=== PATIENT | female | born 1945 | race Caucasian/White ===

== ENCOUNTER 2017-05-17 09:00 | Outpatient (RCR) | payer MEDICARE ==
[2015-08-02 14:31] VITALS: BP 120/59
[~2017-05-17 09:00] MED LIST: ALEVE220 MG PO; ALORA0.025 MG/2 TD; AMOXICILLIN875 MG PO; BUPROPRION; CELEXA20 MG PO; FLEXERIL10 MG PO; GOOD SENSE ASPI81 M1 PO; GRALISE600 M1 PO; HYDROCODONE/APAP; IBUPROFEN 200200 MG PO; KLONOPIN0.5 MG PO; LOPERAMIDE2 M2 PO; METHOCARBAMOL750 MG PO; MINOCIN100 MG PO; PROZAC 10MG10 MG PO; SINEMET 25-1001 EACH PO; SINEMET 25-1001 TAB PO; TRIAMCINOLONE; VENLAFAXINE HYD75 MG PO; XANAX0.25 M1 PO; XANAX0.5 MG PO; ZANAFLEX4 MG PO; ZOCOR20 MG PO; [UNRECOGNIZED DRUG - OTHER] PO
== END 2017-07-28 17:41 | disposition home or self-care (01) ==
LOC: PT 09:00
DX: M48.06 Spinal stenosis, lumbar region (principal); M62.830 Muscle spasm of back
CPT/HCPCS: G8978-GP; G8979-GP

== ENCOUNTER → 2018-03-06 | Outpatient (CLI) | payer MEDICARE, OTHER ==
[2015-08-02 14:31] VITALS: BP 120/59
== END ==
LOC: RAD 09:28
DX: K76.89 Other specified diseases of liver (principal); Z72.89 Other problems related to lifestyle; Z83.79 Family history of other diseases of the digestive system

== ENCOUNTER → 2018-05-05 | Outpatient (CLI) | payer MEDICARE, OTHER ==
[2015-08-02 14:31] VITALS: BP 120/59
[2018-05-05 10:40] LABS: MEAN CELL VOLUME 97 fl (78-100); MEAN CORPUSCULAR HEMOGLOBIN 32 pg (27-31); MEAN CORPUSCULAR HGB CONC 33 g/dL (33-37); MEAN PLATELET VOLUME 9.2 fl (7.4-10.4); PLATELET COUNT 313 K/mm3 (130-400); RED BLOOD COUNT 4.44 M/mm3 (4.10-5.30); RED CELL DISTRIBUTION WIDTH 13.9 % (11.5-14.5); WHITE BLOOD COUNT 7.5 K/mm3 (4.8-10.8)
[2018-05-05 10:53] LABS: LYMPHOCYTE 24 % (20-51); MONOCYTE 6 % (3-10); NEUTROPHILS 67 % (42-75)
[2018-05-05 10:55] LABS: ALBUMIN 3.9 g/dL (3.5-5.0); BUN/CREATININE RATIO 16.3 (6.0-26.0); CALCIUM 9.3 mg/dL (8.4-10.2); POTASSIUM 4.2 mmol/L (3.6-5.0); TOTAL BILIRUBIN 0.4 mg/dL (0.2-1.3); TOTAL PROTEIN 7.4 g/dL (6.3-8.2)
== END ==
LOC: LAB 10:17
DX: R10.84 Generalized abdominal pain (principal)

== ENCOUNTER → 2019-04-17 | Outpatient (CLI) | payer MEDICARE, OTHER ==
[2015-08-02 14:31] VITALS: BP 120/59
== END ==
LOC: MAMMO 10:30
DX: Z12.31 Encounter for screening mammogram for malignant neoplasm of breast (principal)

== ENCOUNTER → 2019-04-17 | Outpatient (CLI) | payer MEDICARE, OTHER ==
[2015-08-02 14:31] VITALS: BP 120/59
== END ==
LOC: RAD 10:31 → MAMMO 11:30
DX: Z13.820 Encounter for screening for osteoporosis (principal); M85.80 Other specified disorders of bone density and structure, unspecified site

== ENCOUNTER 2019-08-23 11:15 | Outpatient (RCR) | payer MEDICARE, OTHER ==
[2015-08-02 14:31] VITALS: BP 120/59
== END 2019-08-23 12:00 | disposition home or self-care (01) ==
LOC: PT 11:15
DX: M48.061 Spinal stenosis, lumbar region without neurogenic claudication (principal)

== ENCOUNTER → 2020-02-04 | Outpatient (CLI) | payer MEDICARE, OTHER ==
[2015-08-02 14:31] VITALS: BP 120/59
== END ==
LOC: RAD 08:45
DX: D75.1 Secondary polycythemia (principal); N94.89 Other specified conditions associated with female genital organs and menstrual cycle; Z90.49 Acquired absence of other specified parts of digestive tract
CPT/HCPCS: Q9967

== ENCOUNTER 2021-02-21 08:20 | Emergency (ER) | payer MEDICARE, OTHER ==
[2021-02-21] MEDS ORDERED: CYMBALTA60 M1 PO (08:33)
[2021-02-21] MEDS ORDERED: BENTYL 20MG20 MG/TAB PO (08:33)
[2021-02-21] MEDS ORDERED: RIVASTIGMINE T4.5 MG PO (08:34)
[2021-02-21] MEDS ORDERED: VITAMIN D325 MC7 PO (08:35)
[2021-02-21] MEDS ORDERED: CALCIUM 600 MG-1 TAB PO (08:35)
[2021-02-21] MEDS ORDERED: NEURONTIN300 M1 PO (08:36)
[2021-02-21] MEDS ORDERED: NEURONTIN400 M1 PO (08:36)
[2021-02-21] MEDS ORDERED: KLONOPIN 0.5MG0.5 MG PO (08:38)
[2021-02-21] MEDS ORDERED: NORCO 325 MG-51 TA1 PO (10:29)
[2021-02-21 10:41] VITALS: BP 132/74
== END 2021-02-21 10:44 | disposition home or self-care (01) ==
LOC: ED 08:20
DX: R07.89 Other chest pain (principal); G20 Parkinson's disease; F17.210 Nicotine dependence, cigarettes, uncomplicated; Z90.710 Acquired absence of both cervix and uterus; Z88.2 Allergy status to sulfonamides; Z88.8 Allergy status to other drugs, medicaments and biological substances; W01.198A Fall on same level from slipping, tripping and stumbling with subsequent striking against other object, initial encounter; Y92.009 Unspecified place in unspecified non-institutional (private) residence as the place of occurrence of the external cause

== ENCOUNTER → 2021-03-25 | Outpatient (CLI) | payer MEDICARE, OTHER ==
[~2021-03-25] MED LIST changes: +BENTYL 20MG20 MG/TAB PO; +CALCIUM 600 MG-1 TAB PO; +CYMBALTA60 M1 PO; +KLONOPIN 0.5MG0.5 MG PO; +NEURONTIN300 M1 PO; +NEURONTIN400 M1 PO; +NORCO 325 MG-51 TA1 PO; +RIVASTIGMINE T4.5 MG PO; +VITAMIN D325 MC7 PO
== END ==
LOC: LAB 10:27
PROVIDERS: Internal Medicine Gastroenterology
DX: R10.30 Lower abdominal pain, unspecified (principal)

== ENCOUNTER → 2021-03-27 | Outpatient (CLI) | payer MEDICARE, OTHER | LOC: RAD 08:21 | DX: R10.30 Lower abdominal pain, unspecified (principal); Z90.710 Acquired absence of both cervix and uterus | CPT/HCPCS: Q9967 ==

== ENCOUNTER → 2022-03-10 | Outpatient (CLI) | payer MEDICARE, OTHER | LOC: MAMMO 12:54 | DX: Z12.31 Encounter for screening mammogram for malignant neoplasm of breast (principal) ==

== ENCOUNTER 2022-11-01 12:09 | Emergency (ER) | payer MEDICARE, OTHER ==
[~2022-11-01] VITALS: Wt 46.3 kg
[~2022-11-01 12:09] MED LIST changes: +CEFDINIR300 MG PO; +CIPRO500 M1 PO; +CLONAZEPAM0.5 M1 PO; +MACROBID 1100 MG/CAP PO; +ONDANSETRON HYDR4 MG PO; +PREDNISONE20 MG PO; +ZOFRAN ODT4 MG PO
[2022-11-01 12:36] LABS: HEMOGLOBIN 13.4 g/dL (12.5-16.0); MEAN CELL VOLUME 87 fl (78-100); MEAN CORPUSCULAR HEMOGLOBIN 29 pg (27-31); MEAN CORPUSCULAR HGB CONC 33 g/dL (33-37); MEAN PLATELET VOLUME 10.9 fl (7.4-10.4); PLATELET COUNT 360 K/mm3 (130-400); RED CELL DISTRIBUTION WIDTH 17.2 % (11.5-14.5); WHITE BLOOD COUNT 3.9 K/mm3 (4.8-10.8)
[2022-11-01 12:46] LABS: ALBUMIN 3.4 g/dL (3.4-4.8); SODIUM 148 mmol/L (136-145)
[2022-11-01 12:47] LABS: CALCIUM 10.3 mg/dL (8.3-10.5)
[2022-11-01 12:48] LABS: GLUCOSE 80 mg/dL (65-105)
[2022-11-01 12:49] LABS: TOTAL PROTEIN 6.6 g/dL (6.2-8.1)
[2022-11-01 12:50] LABS: TOTAL BILIRUBIN 0.8 mg/dL (0.2-1.2)
[2022-11-01 12:54] LABS: AST-SGOT 10 U/L (5-34)
[2022-11-01 12:55] LABS: LIPASE 363 U/L (8-78)
[2022-11-01 13:01] LABS: TROPONIN-I 0.115 ng/mL (<0.030)
[2022-11-01 13:14] LABS: ALT/SGPT < 6 U/L (0-55); CARBON DIOXIDE 17 mmol/L (23-31)
[2022-11-01 13:37] LABS: LYMPHOCYTE 7 % (20-51); MONOCYTE 10 % (3-10); NEUTROPHILS 83 % (42-75)
[2022-11-01 13:50] LABS: URINE APPEARANCE CLEAR; URINE COLOR YELLOW
[2022-11-01 13:51] LABS: URINE BILIRUBIN NEGATIVE (NEGATIVE); URINE BLOOD 50 ery/uL (NEGATIVE); URINE GLUCOSE NEGATIVE (NEGATIVE); URINE KETONE NEGATIVE (NEGATIVE); URINE LEUKOCYTE ESTERASE NEGATIVE (NEGATIVE); URINE MUCUS PRESENT (NOT PRESENT); URINE NITRATE NEGATIVE (NEGATIVE); URINE PROTEIN(semi-quant) 1+ (NEGATIVE); URINE WBC 0-1 /hpf (0-3)
[2022-11-01 15:23] LABS: ALBUMIN 2.9 g/dL (3.4-4.8); SODIUM 146 mmol/L (136-145)
[2022-11-01 15:26] LABS: GLUCOSE 61 mg/dL (65-105); TOTAL PROTEIN 5.3 g/dL (6.2-8.1)
[2022-11-01 15:28] LABS: TOTAL BILIRUBIN 0.7 mg/dL (0.2-1.2)
[2022-11-01 15:31] LABS: AST-SGOT 9 U/L (5-34)
[2022-11-01 15:35] LABS: ALT/SGPT < 6 U/L (0-55); CARBON DIOXIDE 17 mmol/L (23-31)
[2022-11-01 15:38] LABS: TROPONIN-I 0.122 ng/mL (<0.030)
[2022-11-01] MEDS ORDERED: CLONAZEPAM0.5 M1 PO (18:09)
[2022-11-01 18:32] VITALS: BP 125/97
[2022-11-02] MEDS ORDERED: RIVASTIGMINE T4.5 MG PO (18:11)
[2022-11-02] MEDS ORDERED: PRAVASTATIN SOD40 MG PO (18:13)
[2022-11-02] MEDS ORDERED: ONDANSETRON HYDR4 MG PO (18:15)
[2022-11-02] MEDS ORDERED: NEURONTIN300 M1 PO (18:17)
[2023-01-04] MEDS ORDERED: ARICEPT5 M1 PO (12:48)
[2023-01-04] MEDS ORDERED: DICLOFENAC SOD100 GM TP (12:49)
[2023-01-04] MEDS ORDERED: MORPHINE SULFAT15 M7 PO (12:50)
[2023-01-04] MEDS ORDERED: KLONOPIN 1MG1 MG PO (12:52)
[2023-01-04] MEDS ORDERED: NEURONTIN300 M1 PO (12:54)
[2023-01-04] MEDS ORDERED: KEPPRA 500MG500 MG PO (12:54)
[2023-01-04] MEDS ORDERED: DEPAKOTE250 M1 PO (12:54)
[2023-01-04] MEDS ORDERED: REMERON15 MG PO (12:55)
[2023-01-04] MEDS ORDERED: DOCUSATE SOD100 MG PO (12:57)
[2023-01-04] MEDS ORDERED: PROTONIX TR40 M1 PO (12:58)
[2023-01-04] MEDS ORDERED: MEMANTINE HCL5 MG PO (13:30)
[2023-01-04] MEDS ORDERED: CARBIDOPA/LEVODOPA PO (13:31)
== END 2022-11-01 17:10 | disposition other institution (70) ==
LOC: ED 12:09
PROVIDERS: Nurse Practitioner
DX: A41.9 Sepsis, unspecified organism (principal); N28.9 Disorder of kidney and ureter, unspecified; E87.0 Hyperosmolality and hypernatremia; E87.5 Hyperkalemia; R77.8 Other specified abnormalities of plasma proteins; Z28.310 Unvaccinated for COVID-19; W19.XXXA Unspecified fall, initial encounter
CPT/HCPCS: J0692; J2405; J7030; J7040; Q9967

== ENCOUNTER 2022-11-22 17:31 | Inpatient (IN) | payer MEDICARE, OTHER ==
[~2022-11-22] VITALS: Wt 45.3 kg
[~2022-11-22 17:31] MED LIST changes: +PRAVASTATIN SOD40 MG PO
[2022-11-22] MEDS ORDERED: NEURONTIN300 MG/CAP PO (18:13)
[2022-11-22] MEDS ORDERED: BENTYL 20MG20 MG/TAB PO (18:15)
--- NOTE | 2022-11-22 18:16 | NUR ---
Ms. Valero arrived via EMS - [facility] from her home in [place]. It was reported to me via ER Staff that the patient was found on the floor. Appeared she may have fell out of bed. She was on the floor with no clothes on (naked). She was on hospice [facility] out of [place], [place]. [phone]. This CM called and spoke with the Vp Product Management named Yenny Toledo [phone]. She states that Ms. Valero was on their service. As of today they discharged her because she was not being cared for in her home by her DPOA, SON, Mike Valero. She stated that the hospice bath aid came to the house today and stated that Mike answered the door naked. He asked the hospice bath aid: Do you like what you see? Yenny stated that the hospice staff noted ample dirty depends lying on the floor in the house. Ms. Valero was found on the floor as though it appeared she fell out of bed. Ms. Valero was naked. She also had feces all over her body. Yenny states that on a previous visit she came to the house to complete a DPOA for Health Care decison making. It was said that Mili was alert and stated she would like Mike to be her DPOA for Health Care. Yenny also noted that the dogs were eating her breakfast. Yenny advised Mike that the dogs would have to go outside when he fed his mom. Yenny also stated that she did not want Mike to be in charge of her financials at that time. This CM called SANE nurse in [place]. Rose [phone]. Asked her if she would come to [place] to complete a SANE exam? Rose states that Ms. Valero would have to be in protective Custody by either the [facility] or [facility] police. She states that in the [facility] a RN would be able to do the exam if there was consent. Called [facility] Sherrif's office Spoke with Lee Limon. He will be here with a court order to collect evidence. This cm will ask if there is a potential for suspect evidence to be collected as well. Called Keerthi Dietrich with APS. and advised of the update of the situation. She will send information for Guardianship.
[2022-11-22 18:19] VITALS: BP 116/77
--- NOTE | 2022-11-22 18:22 | NUR ---
PT ALERT CONVERSES AT TIMES. MOSTLY CONFUSED. COOPERATIVE AFTER MORPHINE. PT HAS MULTIPLE BRUISES ON HIPS. COCCYX AND OC AREA REDDENED. INCT OF URINE. CURRENTLY BRIEF IS DRY. KNEES AND HEELS ALSO REDENNED. PILLOW PLACED TO ALLEVIATE PRESSURE. SKIN VERY DRY. PT PLACED IN PROTECTIVE CUSTODY DURING ED VISIT. PT PLACED ON R SIDE. BED ALARM ON. CONSTANTLY PULLS AT TUBING AND TAKES GOWNS, BLANKETS, AND PILLOWS.
--- NOTE | 2022-11-22 18:48 | NUR ---
APS Protective Servises Report completed om 11/22/22 at 18:46 hours. Report Number: [id number]
--- NOTE | 2022-11-22 19:12 | NUR ---
Called [facility] for the nurse medical collections specialist. requesting discharge papers from [facility]. Date of discharge 11/12/22.
--- NOTE | 2022-11-22 19:13 | NUR ---
REPORT TO BRAULIO PATRICIO
[2022-11-22 21:40] VITALS: BP 140/61
[2022-11-22 22:28] VITALS: BP 140/61
[2022-11-23 02:15] VITALS: BP 139/71
[2022-11-23 06:01] VITALS: BP 138/57
[2022-11-23 08:15] LABS: BASO # 0.02 K/mm3 (0.02-0.10); EOS # 0.33 K/mm3 (0.04-0.40); EOS % 3.1 % (1.0-5.0); HEMATOCRIT 31.6 % (37.0-47.0); HEMOGLOBIN 9.8 g/dL (12.5-16.0); LYMPH# 1.47 K/mm3 (1.50-4.00); MEAN CELL VOLUME 94 fl (78-100); MEAN CORPUSCULAR HEMOGLOBIN 29 pg (27-31); MEAN CORPUSCULAR HGB CONC 31 g/dL (33-37); MEAN PLATELET VOLUME 9.5 fl (7.4-10.4); MONO # 0.79 K/mm3 (0.20-0.80); NEU # 8.11 K/mm3 (1.40-6.50); PLATELET COUNT 242 K/mm3 (130-400); RED BLOOD COUNT 3.38 M/mm3 (4.10-5.30); RED CELL DISTRIBUTION WIDTH 22.2 % (11.5-14.5); WHITE BLOOD COUNT 10.8 K/mm3 (4.8-10.8)
[2022-11-23 08:31] LABS: ALBUMIN 2.7 g/dL (3.4-4.8)
[2022-11-23 08:32] LABS: POTASSIUM 3.1 mmol/L (3.5-5.1)
[2022-11-23 08:33] LABS: CALCIUM 8.7 mg/dL (8.3-10.5)
[2022-11-23 08:34] LABS: TOTAL PROTEIN 5.6 g/dL (6.2-8.1)
[2022-11-23 08:36] LABS: TOTAL BILIRUBIN 0.6 mg/dL (0.2-1.2)
--- NOTE | 2022-11-23 09:31 | NUR ---
Elton Lerma PA-C at bedside.
--- NOTE | 2022-11-23 09:50 | NUR ---
Patient alert, resting in bed. Oriented to self. Answering questions appropriately, using full sentences. Mouth is dry and crusted, asked patient if she was thirsty, patient requests ice water. Drinks from straw without difficulty. Patient reports a slight headache. D5W infusing though IV to right forearm at ordered rate. Denies needs. Fall precautions in place.
[2022-11-23 09:59] VITALS: BP 155/55
[2022-11-23 14:10] VITALS: BP 174/64
--- NOTE | 2022-11-23 14:35 | NUR ---
Patient is restless and agitated, pulling at IV tubing. Removed her hospital gown and brief. No longer cooperative. Does not follow commands. Patient is stiff and resistant, holds extremities close to body. States "NO" to most questions. Confused. States "I'm going to tell my mommy, I'm going to tell my daddy, that I need to pee." Incontinent pad is dry. This nurse and CORROSION TECHNICIAN assist patient on to bed wolfe. Patient voids large amount of urine. [place]nee care provided. Dry brief applied. Continues to pull at IV line, gown, blankets. Appears uncomfortable. PRN IV morphine administered per orders. Patient is increasingly agitated and restless, stating "I need to piss." Assisted to bedside commode with assist x2. Patient does not void at this time. Assisted back into bed. D5W infusing through IV to right forearm at ordered rate. Denies needs. Fall precautions in place.
--- NOTE | 2022-11-23 15:50 | NUR ---
APS represenative x2 at bedside.
[2022-11-23 17:34] VITALS: BP 156/70
--- NOTE | 2022-11-23 17:52 | NUR ---
Last noted COVID-19 testing was 11/09/22 at [facility]. It was felt by infection control, SINTIA Matthews that the patient could come out of isolation. Pt is afebrile, no coughing, and vital signs are stable. She may come out of isolation based on [facility]'s positive covid testing on 11/09/22. Met Lee Limon from [facility] this morning and reviewed the case with him. Mainly advising that since Mili was not in protective custody there was no consent to have [facility] SANE nurses to come for a SANE Exam. Upon further and lenghty discussions it was determined that a SANE exam would not be done. Lee Limon would collect buccal swabs. [facility] would not be able to put Ms. Valero in protective custody. They have obtained warrants for SANE EXAM collected specimens. Discussions were with Estrella Rodriguez, line out worker, Silvia Saxena RN, SANE Director and ER Director, Rose Torres RN, SANE Nurse, [facility] Supervisor Model MakingSonny Rivera [facility] Tessa Howard. Spoke with APS both Alexis Padilla Adult Protective Services Specialist and Keerthi Dietrich APS, also spoke with Lindsay with [place] [employer] program. Since Mili is not on Medicaid and there is not a phsycologist to preform a mental capacity status for the patient the [place] [employer] will not be able to assist. Information obtained from Estrella Rodriguez in [place] for [employer] to assist with Guardianship Mili is not and has not been able to effectively communicate with this Cytology Laboratory Manager. When Mili has been alert enough to open her eyes and speak with this case folder she states that she doesn't know if she is safe in her home. She doesnt know if she is comfortable. She is unable to communicate if she has pain. She DOES communicate that she has to go to the restroom. Mili states if we do not hurry up there is going to be an accident and big mess. Myself and nursing teacher Nilton assist with bedpan. Mili wiggles and moves around but is unable to have a BM or urinate on the bedpan. Noted some what appears to be old bruising on her right hip area and multiple areas on her body. The areas are non blancable and appear faint light colored purplish. Mostly appears where a diaper would have been. She repeats "God's will, AMEN". This mentation and ability is same as her previous admission mentation. This does not appear to have changed since the last hospital admission 11/02/22 - 11/04/22.
--- NOTE | 2022-11-23 18:15 | NUR ---
Patient resting in bed, denies pain. Patient does not acknowledge staff in the room, with eyes or verbally. Looks straight ahead or off in the distance. Does not answer questions or appear to speak directly to staff. States "gabriela" "yocasta" "come on" "warner ochoa, and jame" or "please" randomly. Will only look at this nurse after tapping her on the shoulder multiple times, may or may not answer one question, then return to looking off in the distance. D5W infusing through IV to right forearm at ordered rate. Fall precautions in place.
--- NOTE | 2022-11-23 19:29 | NUR ---
Report received from Esperanza PATRICIO. Resting in bed with eyes open. Drowsy. States "Mili" only when asked first and last name. This was after repeated asking her name. After that all other questions answered by patient was "what ever you say Lord". IVF infusing D5W at 125 ML/HR. Site patent to [facility]. No signs of pain or distress. Assessment completed. Bed alarm on. Call light in reach.
--- NOTE | 2022-11-23 21:51 | NUR ---
Rests quietly in bed. IVF continue to infuse at 125 ML/HR. Site patent to [facility]. Bed alarm on. Call light in reach.
[2022-11-23 22:00] VITALS: BP 129/62
--- NOTE | 2022-11-23 22:38 | NUR ---
IV Zithromax hung. Patient awake asking for her "daddy". Vital signs obtained. Brief checked and is dry at this time.
--- NOTE | 2022-11-23 23:44 | NUR ---
Restless and aggitated, taking off gown and pulling at IV site. Mso4 2 MG SIVP given at this time. Remains confused.
--- NOTE | 2022-11-24 00:38 | NUR ---
Awake in bed. Not restless or agitated. States she is "ok" when asked.
--- NOTE | 2022-11-24 01:00 | NUR ---
Report received from Niki PATRICIO.
--- NOTE | 2022-11-24 02:04 | NUR ---
Resting quietly with eyes closed. No signs of pain or distress.
[2022-11-24 02:18] VITALS: BP 133/69
--- NOTE | 2022-11-24 05:00 | NUR ---
Morphine 2 Mg given for agitation/restlessness.
[2022-11-24 05:27] VITALS: BP 136/65
--- NOTE | 2022-11-24 07:12 | NUR ---
Report to Esperanza PATRICIO.
[2022-11-24 10:28] VITALS: BP 121/59
[2022-11-24 14:40] VITALS: BP 132/56
[2022-11-24 18:43] VITALS: BP 98/61
[2022-11-24 21:52] VITALS: BP 133/64
--- NOTE | 2022-11-25 01:30 | NUR ---
Patient resting with eyes closed. Respirations with ease.
--- NOTE | 2022-11-25 04:15 | NUR ---
Patient has been resting with eyes closed. Roles self side to side. Restless at this time and pulled IV out to RW. Patient too restless to restart IV, stiffening arms up and calling out she needs to pray. Keily CUELLAR notified and new order received to give Morphine 4mg IM and given IM to RDG.
--- NOTE | 2022-11-25 04:40 | NUR ---
Patient rests calmly in bed with eyes closed.
--- NOTE | 2022-11-25 05:45 | NUR ---
IV attempted x 3 by this nurse 1 to LFA and 2 to RFA without success. IV attempted to LAC and LFA by Lyudmila OLGUIN without success. Keily CUELLAR notified. Patient takes sips of water and med in applesauce without problems.
[2022-11-25 05:47] VITALS: BP 124/63
--- NOTE | 2022-11-25 07:00 | NUR ---
REPORT RECEIVED FROM CLAU CURRAN.
--- NOTE | 2022-11-25 07:30 | NUR ---
PATIENT RESTING IN BED WITH EYES CLOSED. EASILY AROUSABLE UPON ENTERING ROOM. PATIENT DENIES PAIN AT THIS TIME. IV RESTARED IN RIGHT FOREARM. PATIENT TOLERATED WELL. BED IN LOWEST LOCKED POSTION, ALARM ON, CALL LIGHT WITHIN REACH.
--- NOTE | 2022-11-25 08:45 | NUR ---
ASSESSMENT COMPLETE AT THIS TIME. PATIENT CANNOT VERBILIZE NAME OR , DOES SHAKE HEAD WHEN ASKED HER NAME. PATIENT CONTINUES TO DENY PAIN AT THIS TIME. PATIENT REPOSTIONED IN BED AT THIS TIME. BED IN LOWEST LOCKED POSTION, ALARM ON, CALL LIGHT WITHIN REACH.
[2022-11-25 09:46] VITALS: BP 135/73
--- NOTE | 2022-11-25 13:15 | NUR ---
PATIENT TRANSFERED TO [facility]
== END 2022-11-25 13:16 | disposition swing bed (61) | DRG 177 ==
LOC: MED/SURG 17:31
PROVIDERS: ADMIT Nurse Practitioner
DX: U07.1 COVID-19 (principal); J12.82 Pneumonia due to coronavirus disease 2019; E87.0 Hyperosmolality and hypernatremia; N39.0 Urinary tract infection, site not specified; N17.9 Acute kidney failure, unspecified; E87.8 Other disorders of electrolyte and fluid balance, not elsewhere classified; G20 Parkinson's disease; G43.909 Migraine, unspecified, not intractable, without status migrainosus; E87.6 Hypokalemia; F41.9 Anxiety disorder, unspecified; E86.0 Dehydration; E78.5 Hyperlipidemia, unspecified; Z88.2 Allergy status to sulfonamides; Z88.8 Allergy status to other drugs, medicaments and biological substances
CPT/HCPCS: J0456; J0696; J1650; J2060; J2270; J3480; J7050; J7070